=== PATIENT | female | born 1980 | race African-American/Black ===

== ENCOUNTER 2019-07-17 00:11 | Emergency (ER) | payer MEDICAID ==
[~2019-07-17] VITALS: Ht 170.2 cm; Wt 86.2 kg
[2019-07-17 00:30] VITALS: BP 131/75
--- NOTE | 2019-07-17 00:30 | NUR ---
ER Nurse Note: Pt walked in c/o LT hand 5th digit pain d/t slamming finger on trunk around 0020. Skin intact, finger swollen. Pt cannot bend finger. 10/10 pain. Cap refill less than 3 sec. Will continue to monitor.
--- NOTE | 2019-07-17 00:51 | Emergency Room Report ---
History of Present Illness General Chief Complaint: Upper Extremity Injury Source: Patient Present Illness HPI Disclaimer: Please note that this report is being documented using DRAGON technology. This can lead to erroneous entry secondary to incorrect interpretation by the dictating instrument. HPI: This a 38-year-old female presenting for evaluation of left hand injury. The patient states she was shutting the door of her car when her left hand became trapped and it slamming it against the pinky finger. She is unable to bend at the PIPJ notes diffuse tenderness but no significant swelling. She has been applying ice but is taking no medications. Denies any numbness or tingling over the hand. Denies injury to the wrist, forearm or other parts of her body. Takes no anticoagulants. She is right-hand dominant. PMH: Denies PSH: Denies Allergies: Denies Social Hx: Denies drug or alcohol abuse Allergies: Coded Allergies: No Known Allergies (Unverified , 07/17/19) Patient History Last Menstrual Period: 07/16/19 Now: No Nursing Documentation-PMH Past Medical History: No Stated History Review of Systems All Other Systems: negative except mentioned in HPI Physical Exam Vital Signs Date Time Temp Pulse Resp B/P (MAP) Pulse Ox O2 Delivery O2 Flow Rate FiO2 07/17/19 00:15 98.1 100 22 131/75 (93) 100 Room Air General: Awake and alert, appears uncomfortable HEENT: NC/AT. EOMI. Resp: Normal work of breathing. Skin: Intact. No abrasions, laceration or rash over the exposed skin MSK: Normal tone and bulk. Tenderness over the left pinky finger with palpable deformity at the PIPJ. No significant edema, erythema or no skin breakdown. Left wrist has full range of motion on flexion extension and deviation. Able to pronate and supinate at the elbow without difficulty. Right upper extremity is atraumatic without limitation to range of motion or pain. Neuro: Awake and alert. Mentating appropriately. Sensation is intact over the radial and ulnar aspect of all digits in the left hand. Procedures Joint Reduction Joint Reduction : Consent: Verbal Joint Reduction Site: other - Left pinky Procedural Sedation: No Reduction Attempts: One Pre-Procedure NV Exam: Yes Post-Procedure NV Exam: Yes Post Joint Reduction Film: joint reduced Patient Tolerated: Well Complications: None Medical Decision Making Diagnostic Impression: Primary Impression: Dislocation, finger closed ER Course 38-year-old [id number] female presents for evaluation of left pinky injury. Suspect dislocation or fracture. Will obtain an x-ray and give pain medication. Other X-Ray Diagnostic Results Other X-Ray Diagnostic Results : # of Views/Limited Vs Complete: 2 View Indication: Pain EP Interpretation: Yes Interpretation: no fractures, other - Dislocation of the fifth PIPJ. No obvious fracture Impression: Other - Dislocation of fifth PIPJ Electronically Signed by: Electronically signed by Dr. Maverick Childs Last Vital Signs Date Time Temp Pulse Resp B/P (MAP) Pulse Ox O2 Delivery O2 Flow Rate FiO2 07/17/19 00:30 98.1 84 22 131/75 100 Room Air Status: improved Reevaluation Impression The fifth PIPJ was posteriorly dislocated. Performed reduction at bedside which was successful on the first attempt. The patient tolerated the procedure well with no complications. She was neurologically intact at the start and end of the procedure. He was placed in a splint and discharged to follow-up with PMD. We discussed reasons to return to the emergency department. She understands and agrees with treatment plan. Disposition: HOME, SELF-CARE Condition: Stable Scripts No Active Prescriptions or Reported Meds Maverick Childs MD Jul 17, 2019 00:51
[2019-07-17 02:28] VITALS: BP 138/74
--- NOTE | 2019-07-17 02:28 | NUR ---
ER Nurse Note: Pt seen, treated, medically cleared for discharge by ERMD. Discharge instuctions given with repeat verbalization by pt. All orders completed per ERMD orders. Pt a&ox4, VSS, no signs of distress. ID band removed. Finger placed back by ERMD, x-ray taken,and splinted. All questions answered per pt's questions. Pt left with all belongings, left with own transportation.
--- NOTE | 2019-07-17 02:46 | Diagnostic Imaging Report ---
EXAM: XR Left Hand Complete, 3 or More Views CLINICAL HISTORY: PAIN TECHNIQUE: Frontal, lateral and oblique views of the left hand. COMPARISON: No relevant prior studies available. Impression: Bones/joints: Dislocated proximal interphalangeal joint of the fifth finger. Possible fracture at the base of the middle phalanx of the fifth finger. Remaining bones appear to be intact. Soft tissues: Soft tissue swelling. No radiopaque foreign body.
--- NOTE | 2019-07-17 02:46 | Diagnostic Imaging Report ---
EXAM: XR Left Hand Complete, 3 or More Views CLINICAL HISTORY: PAIN TECHNIQUE: Frontal, lateral and oblique views of the left hand. COMPARISON: No relevant prior studies available. IMPRESSION: Status post reduction. There appears to be a corner fracture at the anterior base of the middle phalanx of the fifth finger. Anatomic alignment has improved.
== END 2019-07-17 02:28 | disposition home or self-care (01) ==
LOC: EMR 01:15
DX: S63.287A Dislocation of proximal interphalangeal joint of left little finger, initial encounter (principal); W23.1XXA Caught, crushed, jammed, or pinched between stationary objects, initial encounter; Y92.810 Car as the place of occurrence of the external cause
CPT/HCPCS: 26770; 73130; 73140; 99284; Z7502